=== PATIENT | female | born 2000 | race African-American/Black ===

== ENCOUNTER 2023-11-21 20:43 | Emergency (ER) | payer MEDICAID, OTHER ==
[~2023-11-21] VITALS: Ht 157.5 cm; Wt 64.0 kg
[~2023-11-21 20:43] MED LIST: DOXY100C5 MT
[2023-11-21 21:09] VITALS: BP 130/77; PULSE 105; TEMP 98.2; O2SAT 100
[2023-11-22] MEDS ORDERED: AMOX500T2 MT (13:30)
[2023-11-22] MEDS ORDERED: NAPR-681 PO (13:30)
== END 2023-11-22 00:49 | disposition left against medical advice (07) ==
LOC: ER 20:43
DX: H92.09 Otalgia, unspecified ear (principal); Z53.21 Procedure and treatment not carried out due to patient leaving prior to being seen by health care provider
CPT/HCPCS: 99281

== ENCOUNTER 2023-11-22 12:18 | Emergency (ER) | payer MEDICAID, OTHER ==
[~2023-11-22] VITALS: Ht 154.9 cm; Wt 63.5 kg
[2023-11-22 12:25] VITALS: O2SAT 98
[2023-11-22] MEDS ORDERED: NAPR-681 PO (13:30)
[2023-11-22] MEDS ORDERED: AMOX500T2 MT (13:30)
[2023-11-22 14:05] VITALS: BP 122/69; PULSE 65; RESP 17; TEMP 98.2
== END 2023-11-22 14:08 | disposition home or self-care (01) ==
LOC: ER 12:18
DX: H66.92 Otitis media, unspecified, left ear (principal)
CPT/HCPCS: 99283

== ENCOUNTER 2023-12-06 11:02 | Emergency (ER) | payer MEDICAID ==
[~2023-12-06] VITALS: Ht 160 cm; Wt 58.0 kg
[~2023-12-06 11:02] MED LIST changes: +AMOX500T2 MT; +NAPR-681 PO
[2023-12-06 11:08] VITALS: O2SAT 100
[2023-12-06 11:50] LABS: CLARITY URINE CLOUDY (CLEAR); COLOR URINE YELLOW (YELLOW); GLUCOSE URINE NEGATIVE (NEGATIVE); KETONES URINE NEGATIVE (NEGATIVE); LEUKOCYTE ESTERASE URINE 1+ (NEGATIVE); NITRITE URINE NEGATIVE (NEGATIVE); OCCULT BLOOD URINE NEGATIVE (NEGATIVE); PROTEIN URINE NEGATIVE (NEGATIVE); SPECIFIC GRAVITY URINE 1.024 (1.005-1.030)
[2023-12-06 12:20] LABS: MUCUS URINE 3+ /lpf (< = 2+); SQUAMOUS EPITHELIAL CELL URINE 3+ /lpf (RARE/1+)
[2023-12-06 12:23] LABS: BACTERIA URINE 2+; TRICHOMONAS URINE FEW
[2023-12-06] MEDS ORDERED: METR-167 MT (14:02)
[2023-12-06] MEDS ORDERED: FLUC150T46 MT (14:02)
[2023-12-06 14:21] VITALS: BP 110/72; PULSE 79; RESP 18; TEMP 98.6
[2023-12-07 14:55] LABS: UCG SCREEN NEGATIVE
[2023-12-09 08:07] LABS: CHLAMYDIA TRACHOMATIS NAA Negative (Negative); NEISSERIA GONORRHOEAE NAA Negative (Negative)
== END 2023-12-06 14:24 | disposition home or self-care (01) ==
LOC: ER 11:02
DX: H92.02 Otalgia, left ear (principal); A59.9 Trichomoniasis, unspecified
CPT/HCPCS: 87491; 87591; 81003; 81025; 87210; 99284; Z7610

== ENCOUNTER 2023-12-28 03:53 | Emergency (ER) | payer MEDICAID ==
[~2023-12-28] VITALS: Ht 160 cm; Wt 64.0 kg
[~2023-12-28 03:53] MED LIST changes: +FLUC150T46 MT; +METR-167 MT
[2023-12-28 04:11] VITALS: BP 109/56; PULSE 82; RESP 16; TEMP 98.2; O2SAT 99
[2023-12-28] MEDS ORDERED: AMOX1TAB16 MT (05:55)
== END 2023-12-28 06:11 | disposition home or self-care (01) ==
LOC: ER 03:53
DX: J02.9 Acute pharyngitis, unspecified (principal)
CPT/HCPCS: 99283

== ENCOUNTER 2024-01-01 11:33 | Emergency (ER) | payer MEDICAID, OTHER ==
[~2024-01-01] VITALS: Ht 157.5 cm; Wt 63.6 kg
[~2024-01-01 11:33] MED LIST changes: +AMOX1TAB16 MT
[2024-01-01 12:02] VITALS: O2SAT 100
[2024-01-01 12:53] LABS: CLARITY URINE CLOUDY (CLEAR); COLOR URINE YELLOW (YELLOW); GLUCOSE URINE NEGATIVE (NEGATIVE); KETONES URINE NEGATIVE (NEGATIVE); LEUKOCYTE ESTERASE URINE 2+ (NEGATIVE); NITRITE URINE NEGATIVE (NEGATIVE); OCCULT BLOOD URINE NEGATIVE (NEGATIVE); PROTEIN URINE NEGATIVE (NEGATIVE); SPECIFIC GRAVITY URINE 1.021 (1.005-1.030)
[2024-01-01 13:09] LABS: MUCUS URINE 3+ /lpf (< = 2+); SQUAMOUS EPITHELIAL CELL URINE 3+ /lpf (RARE/1+)
[2024-01-01 13:11] LABS: BACTERIA URINE 2+
[2024-01-01] MEDS ORDERED: METR70GE5 VG (15:26)
[2024-01-01 16:05] VITALS: BP 120/64; PULSE 60; RESP 17; TEMP 98.8
[2024-01-04 06:10] LABS: CHLAMYDIA TRACHOMATIS NAA Negative (Negative); NEISSERIA GONORRHOEAE NAA Negative (Negative)
== END 2024-01-01 16:09 | disposition home or self-care (01) ==
LOC: ER 11:33
DX: N76.0 Acute vaginitis (principal)
CPT/HCPCS: 87491; 87591; 81003; 81025; 87086; 87210; 99284; Z7610

== ENCOUNTER 2024-08-13 13:19 | Emergency (ER) | payer OTHER ==
[~2024-08-13] VITALS: Ht 157.5 cm; Wt 63.5 kg
[~2024-08-13 13:19] MED LIST changes: +METR70GE27 VG
[2024-08-13 13:20] VITALS: O2SAT 100
[2024-08-13 15:14] LABS: CLARITY URINE CLOUDY (CLEAR); COLOR URINE YELLOW (YELLOW); GLUCOSE URINE NEGATIVE (NEGATIVE); KETONES URINE NEGATIVE (NEGATIVE); LEUKOCYTE ESTERASE URINE 3+ (NEGATIVE); NITRITE URINE NEGATIVE (NEGATIVE); OCCULT BLOOD URINE NEGATIVE (NEGATIVE); PROTEIN URINE NEGATIVE (NEGATIVE); SPECIFIC GRAVITY URINE 1.021 (1.005-1.030)
[2024-08-13 15:35] LABS: BACTERIA URINE TRACE; RBC URINE 0-2 /hpf (0-2); SQUAMOUS EPITHELIAL CELL URINE 2+ /lpf (RARE/1+)
[2024-08-13] MEDS ORDERED: METR375C2 MT (17:12)
[2024-08-13] MEDS ORDERED: DOXY100C5 MT (17:12)
[2024-08-13] MEDS ORDERED: FLUCONAZOLE 100MG TABLET PO ONE (17:15)
[2024-08-13 17:20] VITALS: BP 116/77; PULSE 74; RESP 16; TEMP 36.94740; O2SAT 99
[2024-08-13] MEDS: FLUCONAZOLE 150MG TABLET PO NR (17:23)
[2024-08-13] MEDS: CEFTRIAXONE SODIUM 500MG VIAL IM ONE (17:23)
[2024-08-14 12:42] LABS: UCG SCREEN NEGATIVE
[2024-08-18 13:10] LABS: CHLAMYDIA TRACHOMATIS NAA Negative (Negative); NEISSERIA GONORRHOEAE NAA Negative (Negative)
== END 2024-08-13 17:23 | disposition home or self-care (01) ==
LOC: ER 13:19
DX: Z11.3 Encounter for screening for infections with a predominantly sexual mode of transmission (principal); Z79.899 Other long term (current) drug therapy
CPT/HCPCS: 87491; 87591; 81003; 81025; 99284; Z7610

== ENCOUNTER 2025-03-21 09:48 | Emergency (ER) | payer MEDICAID, OTHER ==
[~2025-03-21] VITALS: Ht 167.6 cm; Wt 54.0 kg
[~2025-03-21 09:48] MED LIST changes: +METR375C2 MT
[2025-03-21 09:55] VITALS: O2SAT 98
[2025-03-21 10:15] VITALS: RESP 18
[2025-03-21] MEDS ORDERED: IBUP-2029 MT (10:36)
[2025-03-21] MEDS ORDERED: AMOX-494 MT (10:36)
[2025-03-21 11:05] VITALS: BP 116/75; PULSE 65; TEMP 37; O2SAT 98
== END 2025-03-21 11:08 | disposition home or self-care (01) ==
LOC: ER 10:34
DX: J02.9 Acute pharyngitis, unspecified (principal); Z79.899 Other long term (current) drug therapy
CPT/HCPCS: 81025; 87070; 87430; 99283

== ENCOUNTER 2025-08-03 19:28 | Emergency (ER) | payer MEDICAID, OTHER ==
[~2025-08-03] VITALS: Ht 157.5 cm; Wt 63.3 kg
[~2025-08-03 19:28] MED LIST changes: +AMOX-494 MT; +IBUP-1455 MT
[2025-08-03 19:37] VITALS: TEMP 37; O2SAT 98
[2025-08-03] MEDS ORDERED: BO1 TP (21:10)
[2025-08-03] MEDS ORDERED: P50 MT (21:10)
[2025-08-03] MEDS ORDERED: DIPH25CA83 MT (21:10)
[2025-08-03 21:24] VITALS: BP 108/75; PULSE 85; RESP 18; O2SAT 99
== END 2025-08-03 21:25 | disposition home or self-care (01) ==
LOC: ER 19:28
DX: R21 Rash and other nonspecific skin eruption (principal)
CPT/HCPCS: 99283

== ENCOUNTER 2025-08-11 11:26 | Emergency (ER) | payer OTHER ==
[~2025-08-11] VITALS: Ht 157.5 cm; Wt 63.0 kg
[~2025-08-11 11:26] MED LIST changes: +BO1 TP; +DIPH25CA83 MT; +P50 MT
[2025-08-11 11:32] VITALS: O2SAT 100
[2025-08-11 11:52] VITALS: BP 119/76; PULSE 99; RESP 18; TEMP 36.6; O2SAT 99
[2025-08-11] MEDS ORDERED: CEFTRIAXONE SODIUM 500MG VIAL IM ONE (12:30)
== END 2025-08-11 15:17 | disposition left against medical advice (07) ==
LOC: ER 11:26
DX: Z11.3 Encounter for screening for infections with a predominantly sexual mode of transmission (principal)
CPT/HCPCS: 99281